=== PATIENT | male | born 1965 | race Caucasian/White ===

== ENCOUNTER 2019-10-13 12:09 | Observation (INO) ==
[2019-10-13 12:33] LABS: Basophils # 0.1 K/mcL (0.0-0.2); Basophils % 0.7 %; Eosinophils # 0.1 K/mcL (0.0-0.6); Eosinophils % 1.4 %; Hematocrit 56.6 % (37.5-50.1); Hemoglobin 18.1 g/dL (12.9-16.9); Immature Granulocytes % 0.4 % (0-4); Lymphocytes # 1.8 K/mcL (0.6-4.6); Lymphocytes % 25.3 %; Mean Corpuscular Hemoglobin 32.6 pg (28.0-33.3); Mean Platelet Volume 8.4 fL (9.4-12.4); Monocytes # 0.6 K/mcL (0.0-1.3); Monocytes % 8.5 %; Neutrophils # 4.6 K/mcL (1.6-8.9); Platelet Count 187 K/mcL (140-400); Red Blood Count 5.55 M/mcL (4.19-5.50); Red Cell Distribution Width 13.1 % (11.5-14.5); Segmented Neutrophils % 63.7 %; White Blood Count 7.2 K/mcL (4.3-11.1)
[2019-10-13 12:54] LABS: BUN/Creatinine Ratio 22 (6-26); Blood Urea Nitrogen 17 mg/dL (6-20); Carbon Dioxide 30 mEq/L (23-29); Chloride 104 mEq/L (98-107); Glucose 105 mg/dL (70-105); Osmolality,Calculated 294 (280-300); Potassium 3.9 mEq/L (3.5-5.1); Sodium 141 mEq/L (136-145); eGFR For African Americans > 60 (> 60); eGFR For Non-African Americans > 60 (> 60)
[2019-10-13 12:55] LABS: Troponin I < 0.03 ng/mL (< 0.04)
[2019-10-13] MEDS ORDERED: Aspirin 325 MG TABLET PO ONE (12:56)
[2019-10-13] MEDS ORDERED: Naloxone 0.4 MG/ML INJ IVP PRN (13:45)
[2019-10-13] MEDS ORDERED: Ondansetron 4 MG/2 ML VIAL IVP PRN (13:45)
[2019-10-13] MEDS ORDERED: Perflutren Lipid Microsphere 1.3 ML in 0.9 % Sodium Chloride 8.7 ML IVP PRN (14:09)
[2019-10-13] MEDS: Nicotine 21 MG PATCH.TD24 TD SCH (14:48)
[2019-10-13] MEDS: *HR* Heparin 5,000 UNIT/ML VIAL SQ SCH (19:46)
[2019-10-13] MEDS: Budesonide/Formoterol 80/4.5 1 PUFF INH IH SCH (20:21)
[2019-10-14 04:26] LABS: Basophils % 0.5 %; Eosinophils # 0.2 K/mcL (0.0-0.6); Eosinophils % 2.2 %; Hematocrit 52.1 % (37.5-50.1); Hemoglobin 16.8 g/dL (12.9-16.9); Immature Granulocytes % 0.2 % (0-4); Lymphocytes % 24.6 %; Mean Corpuscular HGB Conc 32.2 g/dL (31.6-35.5); Mean Corpuscular Hemoglobin 33.1 pg (28.0-33.3); Mean Corpuscular Volume 102.8 fL (83.0-100.0); Mean Platelet Volume 8.7 fL (9.4-12.4); Monocytes # 0.9 K/mcL (0.0-1.3); Monocytes % 10.7 %; Neutrophils # 5.1 K/mcL (1.6-8.9); Platelet Count 172 K/mcL (140-400); Red Blood Count 5.07 M/mcL (4.19-5.50); Red Cell Distribution Width 13.1 % (11.5-14.5); Segmented Neutrophils % 61.8 %; White Blood Count 8.2 K/mcL (4.3-11.1)
[2019-10-14] MEDS ORDERED: Acetaminophen 325 MG TABLET PO ONE ×2 (04:28→11:52)
[2019-10-14 04:44] LABS: BUN/Creatinine Ratio 21 (6-26); Blood Urea Nitrogen 16 mg/dL (6-20); Calcium 8.8 mg/dL (8.6-10.3); Carbon Dioxide 30 mEq/L (23-29); Chloride 104 mEq/L (98-107); Chol/HDL Ratio 2.5 (0-4.9); Cholesterol 110 mg/dL (< 200); Glucose 93 mg/dL (70-105); HDL Cholesterol 44 mg/dL (40-59); LDL Cholesterol,Calculated 39 mg/dL (< 100); Magnesium 1.9 mg/dL (1.6-2.6); Osmolality,Calculated 287 (280-300); Potassium 3.8 mEq/L (3.5-5.1); Sodium 138 mEq/L (136-145); Triglycerides 136 mg/dL (< 150); eGFR For African Americans > 60 (> 60); eGFR For Non-African Americans > 60 (> 60)
[2019-10-14 05:07] LABS: Folate 9.8 ng/mL (3.0-16.0)
[2019-10-14] MEDS: *HR* Heparin 5,000 UNIT/ML VIAL SQ SCH (05:10)
[2019-10-14] MEDS ORDERED: Aspirin Enteric Coated 81 MG Tablet PO SCH (09:00)
[2019-10-14] MEDS: Nicotine 21 MG PATCH.TD24 TD SCH (09:01)
[2019-10-14] MEDS: Budesonide/Formoterol 80/4.5 1 PUFF INH IH SCH (10:29)
[2019-10-14 12:08] VITALS: BP 134/92
== END 2019-10-14 13:42 | disposition home or self-care (01) ==
LOC: 3BNU 12:09 → EMEROOARM 12:09 → SUATTDRO 14:03 → 3BNU 14:32
PROVIDERS: ADMIT Family Medicine; ATTEND Internal Medicine

== ENCOUNTER 2020-08-01 06:39 | Inpatient (IN) ==
[2020-08-01] MEDS ORDERED: Ipratropium/Albuterol Neb 3 ML IH ONE ×2 (06:54→13:07)
[2020-08-01] MEDS ORDERED: methylPREDNISolone 125 MG/2 ML VIAL IVP ONE (06:54)
[2020-08-01 07:10] LABS: Basophils % 0.4 %; Eosinophils # 0.1 K/mcL (0.0-0.6); Eosinophils % 1.4 %; Hemoglobin 17.5 g/dL (12.9-16.9); Immature Granulocytes % 0.4 % (0-4); Lymphocytes # 1.1 K/mcL (0.6-4.6); Lymphocytes % 15.1 %; Mean Corpuscular HGB Conc 30.7 g/dL (31.6-35.5); Mean Corpuscular Hemoglobin 31.9 pg (28.0-33.3); Mean Corpuscular Volume 103.8 fL (83.0-100.0); Mean Platelet Volume 8.7 fL (9.4-12.4); Monocytes # 0.8 K/mcL (0.0-1.3); Monocytes % 12.1 %; Neutrophils # 4.9 K/mcL (1.6-8.9); Platelet Count 140 K/mcL (140-400); Red Blood Count 5.49 M/mcL (4.19-5.50); Red Cell Distribution Width 12.5 % (11.5-14.5); Segmented Neutrophils % 70.6 %
[2020-08-01 08:38] LABS: BUN/Creatinine Ratio 21 (6-26); Blood Urea Nitrogen 14 mg/dL (6-20); Calcium 8.5 mg/dL (8.6-10.3); Carbon Dioxide 38 mEq/L (23-29); Chloride 100 mEq/L (98-107); Glucose 165 mg/dL (70-105); Osmolality,Calculated 294 (280-300); Potassium 3.9 mEq/L (3.5-5.1); Sodium 140 mEq/L (136-145); Troponin I < 0.03 ng/mL (< 0.04); eGFR For African Americans > 60 (> 60); eGFR For Non-African Americans > 60 (> 60)
[2020-08-01] MEDS ORDERED: Doxycycline 100 MG in 0.9 % Sodium Chloride Mini Bag 100 ML IVPB ONE (13:07)
[2020-08-01] MEDS ORDERED: 0.9 % Sodium Chloride 1,000 ML IV ONE (13:08)
[2020-08-01] MEDS ORDERED: Naloxone 0.4 MG/ML INJ IVP PRN (14:04)
[2020-08-01] MEDS ORDERED: Ondansetron 4 MG/2 ML VIAL IVP PRN (14:04)
[2020-08-01] MEDS: Nicotine 14 MG PATCH.TD24 TD SCH (17:20)
[2020-08-01 19:27] LABS: Adenovirus Not Detected (Not Detect); Coronavirus 229E Not Detected (Not Detect); Coronavirus HKU1 Not Detected (Not Detect); Coronavirus NL63 Not Detected (Not Detect); Coronavirus OC43 DETECTED (Not Detect); SARS-CoV-2 Not Detected (Not Detect)
[2020-08-01 19:28] LABS: Bordetella Pertussis Not Detected (Not Detect); Chlamydophila pneumoniae Not Detected (Not Detect); Human Metapneumovirus Not Detected (Not Detect); Human Rhinovirus/Enterovirus Not Detected (Not Detect); Influenza A Subtype 2009 H1 Not Detected (Not Detect); Influenza B Not Detected (Not Detect); Mycoplasma pneumoniae Not Detected (Not Detect); Parainfluenza Virus 1 Not Detected (Not Detect); Parainfluenza Virus 2 Not Detected (Not Detect); Parainfluenza Virus 3 Not Detected (Not Detect); Parainfluenza Virus 4 Not Detected (Not Detect); Respiratory Syncytial Virus Not Detected (Not Detect)
[2020-08-01] MEDS: Acetaminophen 325 MG TABLET PO PRN (20:00)
[2020-08-01] MEDS: Doxycycline 100 MG in 0.9 % Sodium Chloride Mini Bag 100 ML IVPB SCH (20:09)
[2020-08-01] MEDS: Ipratropium/Albuterol Neb 3 ML IH SCH (22:00)
[2020-08-01] MEDS: Budesonide/Formoterol 160/4.5 1 PUFF INH IH SCH (22:00)
[2020-08-02 01:24] LABS: Basophils % 0.2 %; Hematocrit 56.8 % (37.5-50.1); Hemoglobin 17.2 g/dL (12.9-16.9); Immature Granulocytes % 0.3 % (0-4); Lymphocytes # 0.3 K/mcL (0.6-4.6); Lymphocytes % 5.4 %; Mean Corpuscular HGB Conc 30.3 g/dL (31.6-35.5); Mean Corpuscular Hemoglobin 31.8 pg (28.0-33.3); Mean Platelet Volume 8.7 fL (9.4-12.4); Monocytes # 0.2 K/mcL (0.0-1.3); Monocytes % 3.1 %; Neutrophils # 5.2 K/mcL (1.6-8.9); Platelet Count 142 K/mcL (140-400); Red Blood Count 5.41 M/mcL (4.19-5.50); Red Cell Distribution Width 12.3 % (11.5-14.5); White Blood Count 5.7 K/mcL (4.3-11.1)
[2020-08-02 01:44] LABS: BUN/Creatinine Ratio 27 (6-26); Blood Urea Nitrogen 17 mg/dL (6-20); Calcium 8.5 mg/dL (8.6-10.3); Carbon Dioxide 37 mEq/L (23-29); Chloride 98 mEq/L (98-107); Glucose 154 mg/dL (70-105); Osmolality,Calculated 295 (280-300); Potassium 4.4 mEq/L (3.5-5.1); Sodium 140 mEq/L (136-145); eGFR For African Americans > 60 (> 60); eGFR For Non-African Americans > 60 (> 60)
[2020-08-02] MEDS: Ipratropium/Albuterol Neb 3 ML IH SCH ×4 (04:03→22:35)
[2020-08-02] MEDS: Acetaminophen 325 MG TABLET PO PRN ×2 (04:25→15:21)
[2020-08-02] MEDS: Nicotine 14 MG PATCH.TD24 TD SCH (08:39)
[2020-08-02] MEDS: Doxycycline 100 MG in 0.9 % Sodium Chloride Mini Bag 100 ML IVPB SCH ×2 (08:44→21:14)
[2020-08-02] MEDS: amLODIPine 5 MG TABLET PO SCH (08:45)
[2020-08-02] MEDS: Metoprolol XL (24 HR) Succ 25 MG TAB.ER.24H PO SCH (08:45)
[2020-08-02] MEDS ORDERED: Furosemide 40 MG TABLET PO SCH (09:00)
[2020-08-02] MEDS: MethylPREDNISolone 40 MG/ML VIAL IVP SCH ×2 (09:09→15:21)
[2020-08-02] MEDS ORDERED: Perflutren Lipid Microsphere 1.3 ML in 0.9 % Sodium Chloride 8.7 ML IVP PRN (09:43)
[2020-08-02] MEDS: Budesonide/Formoterol 160/4.5 1 PUFF INH IH SCH ×2 (10:53→22:35)
[2020-08-02] MEDS: Furosemide 40 MG TABLET PO SCH (15:21)
[2020-08-02] MEDS ORDERED: Acetaminophen/Aspirin/Caffeine TABLET PO PRN (20:00)
[2020-08-03] MEDS: MethylPREDNISolone 40 MG/ML VIAL IVP SCH ×3 (00:27→16:04)
[2020-08-03 01:55] LABS: Basophils % 0.1 %; Immature Granulocytes % 0.3 % (0-4); Lymphocytes # 0.5 K/mcL (0.6-4.6); Lymphocytes % 3.9 %; Mean Corpuscular HGB Conc 30.6 g/dL (31.6-35.5); Mean Corpuscular Volume 104.7 fL (83.0-100.0); Mean Platelet Volume 9.2 fL (9.4-12.4); Monocytes # 0.5 K/mcL (0.0-1.3); Neutrophils # 11.3 K/mcL (1.6-8.9); Platelet Count 151 K/mcL (140-400); Red Blood Count 5.31 M/mcL (4.19-5.50); Red Cell Distribution Width 12.1 % (11.5-14.5); Segmented Neutrophils % 91.7 %
[2020-08-03 01:57] LABS: Hematocrit 55.6 % (37.5-50.1); White Blood Count 12.3 K/mcL (4.3-11.1)
[2020-08-03 02:19] LABS: BUN/Creatinine Ratio 31 (6-26); Blood Urea Nitrogen 24 mg/dL (6-20); Calcium 8.8 mg/dL (8.6-10.3); Carbon Dioxide 37 mEq/L (23-29); Chloride 97 mEq/L (98-107); Glucose 149 mg/dL (70-105); Osmolality,Calculated 297 (280-300); Potassium 4.1 mEq/L (3.5-5.1); Sodium 140 mEq/L (136-145); eGFR For African Americans > 60 (> 60); eGFR For Non-African Americans > 60 (> 60)
[2020-08-03] MEDS: Ipratropium/Albuterol Neb 3 ML IH SCH ×4 (03:54→22:37)
[2020-08-03] MEDS: Doxycycline 100 MG in 0.9 % Sodium Chloride Mini Bag 100 ML IVPB SCH ×2 (09:30→20:05)
[2020-08-03] MEDS: amLODIPine 5 MG TABLET PO SCH (09:32)
[2020-08-03] MEDS: Metoprolol XL (24 HR) Succ 25 MG TAB.ER.24H PO SCH (09:32)
[2020-08-03] MEDS: Furosemide 40 MG/4 ML VIAL IVP SCH ×4 (10:13→17:36)
[2020-08-03] MEDS: Budesonide/Formoterol 160/4.5 1 PUFF INH IH SCH ×2 (10:53→22:37)
[2020-08-03] MEDS: Nicotine 14 MG PATCH.TD24 TD SCH (11:19)
[2020-08-04] MEDS: MethylPREDNISolone 40 MG/ML VIAL IVP SCH ×3 (00:32→21:36)
[2020-08-04] MEDS: Ipratropium/Albuterol Neb 3 ML IH SCH ×4 (03:31→23:12)
[2020-08-04 03:59] LABS: Basophils % 0.1 %; Hemoglobin 17.5 g/dL (12.9-16.9); Immature Granulocytes % 0.6 % (0-4); Lymphocytes # 0.4 K/mcL (0.6-4.6); Lymphocytes % 2.8 %; Mean Corpuscular HGB Conc 31.7 g/dL (31.6-35.5); Mean Corpuscular Hemoglobin 32.4 pg (28.0-33.3); Mean Corpuscular Volume 102.2 fL (83.0-100.0); Mean Platelet Volume 8.6 fL (9.4-12.4); Monocytes # 0.6 K/mcL (0.0-1.3); Neutrophils # 13.8 K/mcL (1.6-8.9); Platelet Count 159 K/mcL (140-400); Red Cell Distribution Width 12.2 % (11.5-14.5); Segmented Neutrophils % 92.5 %
[2020-08-04 04:09] LABS: Hematocrit 55.2 % (37.5-50.1)
[2020-08-04 04:23] LABS: BUN/Creatinine Ratio 31 (6-26); Blood Urea Nitrogen 22 mg/dL (6-20); Calcium 9.1 mg/dL (8.6-10.3); Carbon Dioxide 40 mEq/L (23-29); Chloride 95 mEq/L (98-107); Glucose 119 mg/dL (70-105); Osmolality,Calculated 292 (280-300); Potassium 4.2 mEq/L (3.5-5.1); Sodium 139 mEq/L (136-145); eGFR For African Americans > 60 (> 60); eGFR For Non-African Americans > 60 (> 60)
[2020-08-04] MEDS: Doxycycline 100 MG in 0.9 % Sodium Chloride Mini Bag 100 ML IVPB SCH ×2 (09:10→21:32)
[2020-08-04] MEDS: Furosemide 40 MG/4 ML VIAL IVP SCH (09:10)
[2020-08-04] MEDS: amLODIPine 5 MG TABLET PO SCH (09:10)
[2020-08-04] MEDS: Metoprolol XL (24 HR) Succ 25 MG TAB.ER.24H PO SCH (09:10)
[2020-08-04] MEDS: Nicotine 14 MG PATCH.TD24 TD SCH (09:11)
[2020-08-04] MEDS: Budesonide/Formoterol 160/4.5 1 PUFF INH IH SCH ×2 (10:41→23:12)
[2020-08-04] MEDS: Furosemide 40 MG TABLET PO SCH ×2 (16:31→20:33)
[2020-08-05 01:26] LABS: Basophils % 0.1 %; Hemoglobin 18.3 g/dL (12.9-16.9); Immature Granulocytes % 0.4 % (0-4); Lymphocytes # 0.4 K/mcL (0.6-4.6); Lymphocytes % 3.3 %; Mean Corpuscular HGB Conc 31.2 g/dL (31.6-35.5); Mean Corpuscular Hemoglobin 31.6 pg (28.0-33.3); Mean Corpuscular Volume 101.4 fL (83.0-100.0); Mean Platelet Volume 9.1 fL (9.4-12.4); Monocytes # 0.8 K/mcL (0.0-1.3); Monocytes % 5.8 %; Platelet Count 166 K/mcL (140-400); Red Blood Count 5.79 M/mcL (4.19-5.50); Red Cell Distribution Width 12.4 % (11.5-14.5); Segmented Neutrophils % 90.4 %; White Blood Count 13.2 K/mcL (4.3-11.1)
[2020-08-05 01:27] LABS: Hematocrit 58.7 % (37.5-50.1)
[2020-08-05 01:39] LABS: BUN/Creatinine Ratio 31 (6-26); Blood Urea Nitrogen 26 mg/dL (6-20); Calcium 8.9 mg/dL (8.6-10.3); Carbon Dioxide 38 mEq/L (23-29); Chloride 95 mEq/L (98-107); Glucose 143 mg/dL (70-105); Osmolality,Calculated 299 (280-300); Potassium 3.8 mEq/L (3.5-5.1); Sodium 141 mEq/L (136-145); eGFR For African Americans > 60 (> 60); eGFR For Non-African Americans > 60 (> 60)
[2020-08-05] MEDS: Ipratropium/Albuterol Neb 3 ML IH SCH ×4 (03:54→21:59)
[2020-08-05] MEDS: Metoprolol XL (24 HR) Succ 25 MG TAB.ER.24H PO SCH (08:59)
[2020-08-05] MEDS: MethylPREDNISolone 40 MG/ML VIAL IVP SCH ×2 (08:59→21:01)
[2020-08-05] MEDS: Furosemide 40 MG TABLET PO SCH ×2 (08:59→16:19)
[2020-08-05] MEDS: amLODIPine 5 MG TABLET PO SCH (08:59)
[2020-08-05] MEDS: Nicotine 14 MG PATCH.TD24 TD SCH (09:00)
[2020-08-05] MEDS: Doxycycline 100 MG in 0.9 % Sodium Chloride Mini Bag 100 ML IVPB SCH (09:01)
[2020-08-05] MEDS: Budesonide/Formoterol 160/4.5 1 PUFF INH IH SCH ×2 (09:47→21:59)
[2020-08-05] MEDS: Doxycycline 100 MG CAPSULE PO SCH (21:01)
[2020-08-06 02:03] LABS: Basophils % 0.1 %; Hemoglobin 17.5 g/dL (12.9-16.9); Immature Granulocytes % 0.5 % (0-4); Lymphocytes # 0.4 K/mcL (0.6-4.6); Lymphocytes % 3.5 %; Mean Corpuscular Hemoglobin 31.1 pg (28.0-33.3); Mean Corpuscular Volume 100.2 fL (83.0-100.0); Mean Platelet Volume 8.8 fL (9.4-12.4); Monocytes # 0.5 K/mcL (0.0-1.3); Monocytes % 4.4 %; Neutrophils # 10.4 K/mcL (1.6-8.9); Platelet Count 158 K/mcL (140-400); Red Blood Count 5.63 M/mcL (4.19-5.50); Red Cell Distribution Width 12.3 % (11.5-14.5); Segmented Neutrophils % 91.5 %; White Blood Count 11.3 K/mcL (4.3-11.1)
[2020-08-06 02:05] LABS: Hematocrit 56.4 % (37.5-50.1)
[2020-08-06 02:21] LABS: BUN/Creatinine Ratio 35 (6-26); Blood Urea Nitrogen 26 mg/dL (6-20); Carbon Dioxide 35 mEq/L (23-29); Chloride 98 mEq/L (98-107); Glucose 141 mg/dL (70-105); Osmolality,Calculated 301 (280-300); Potassium 4.1 mEq/L (3.5-5.1); Sodium 142 mEq/L (136-145); eGFR For African Americans > 60 (> 60); eGFR For Non-African Americans > 60 (> 60)
[2020-08-06] MEDS: Ipratropium/Albuterol Neb 3 ML IH SCH ×2 (04:17→09:35)
[2020-08-06] MEDS: Nicotine 14 MG PATCH.TD24 TD SCH (07:06)
[2020-08-06] MEDS: MethylPREDNISolone 40 MG/ML VIAL IVP SCH (07:41)
[2020-08-06] MEDS: amLODIPine 5 MG TABLET PO SCH (07:41)
[2020-08-06] MEDS: Furosemide 40 MG TABLET PO SCH (07:41)
[2020-08-06] MEDS: Metoprolol XL (24 HR) Succ 25 MG TAB.ER.24H PO SCH (07:41)
[2020-08-06] MEDS: Doxycycline 100 MG CAPSULE PO SCH (07:42)
[2020-08-06] MEDS: Budesonide/Formoterol 160/4.5 1 PUFF INH IH SCH (09:35)
[2020-08-06 11:07] VITALS: BP 123/83
== END 2020-08-06 11:59 | disposition home or self-care (01) | DRG 190 ==
LOC: 3BNU 06:39 → EMEROOARM 06:39 → SUATTDRO 13:30 → 2ANU 14:40 → SUATTDRO 08-03 12:31
PROVIDERS: ADMIT Internal Medicine; ATTEND Internal Medicine